=== PATIENT | female | born 1970 | race Hispanic/Latino ===

== ENCOUNTER 2016-03-14 06:48 | Emergency (ER) | payer OTHER ==
[2016-03-14 07:43] LABS: Basophils % (Auto) 0.6 % (0.0-1.8); Eosinophils % (Auto) 4.2 % (0.0-4.3); Hematocrit 39.2 % (30.3-42.9); Hemoglobin 12.8 gm/dl (10.1-14.3); Mean Corpuscular HGB Conc 33 % (30-34); Mean Corpuscular Hemoglobin 29 pg (28-32); Mean Corpuscular Volume 88 fl (79-97); Platelet Count 222 K/mm3 (140-440); Red Blood Count 4.48 M/mm3 (3.65-5.03); Red Cell Distribution Width 14.1 % (13.2-15.2); White Blood Count 9.9 K/mm3 (4.5-11.0)
[2016-03-14 07:49] LABS: Anion Gap 19 mmol/L; Blood Urea Nitrogen 9 mg/dL (7-17); Calcium 8.7 mg/dL (8.4-10.2); Carbon Dioxide 25 mmol/L (22-30); Chloride 103.3 mmol/L (98-107); Glucose 115 mg/dL (65-100); Potassium 4.6 mmol/L (3.6-5.0); Sodium 143 mmol/L (137-145)
--- NOTE | 2016-03-14 10:33 | Emergency Department Report ---
ED General Adult HPI - General Chief complaint: Extremity Problem,Nontraumatic Stated complaint: LEG NUMBNESS Time Seen by Provider: 03/14/16 10:19 Source: patient Mode of arrival: Wheelchair Limitations: No Limitations - History of Present Illness Initial comments: Patient complains of severe lower back pain. She states that she has been unable to urinate since 8 PM last night. She also states he's been unable to walk. She complains of some vague numbness. Her pain is not radiating. He states that she has never had a CT or an MRI of her lower back. She does admit to having chronic back pain. However she states that she has not seen a physician for evaluation of back pain for "2 years". I did review the patient's prior imaging studies. She indeed has had a CT of her lower back here in December 2015 when she was seen for lower back pain. There was no evidence of acute disc herniation evident on those studies. I asked her about this historical discrepancy. She told me that she had a CT and [facility]. When I asked her specifically about having a CT here, she stated "oh, I did have a CT before here a long time ago". I informed her that the CT was approximately 3 months ago and she said, "I forgot that". -: days(s) (worse for the past few days), year(s) Location: back (lower lumbar) Radiation: non-radiation Quality: aching Consistency: constant Improves with: none Worsens with: movement Associated Symptoms: denies other symptoms - Related Data Home Medications Medication Instructions Recorded Confirmed Last Taken No Known Home Medications [No 10/23/15 10/23/15 Unknown Reported Home Medications] Allergies Allergy/AdvReac Type Severity Reaction Status Date / Time bee venom (honey bee) Allergy Unknown Verified 03/14/16 06:59 cinnamon Allergy Unknown Verified 03/14/16 06:58 coconut oil Allergy Unknown Verified 03/14/16 06:59 ED Review of Systems ROS: Stated complaint: LEG NUMBNESS Other details as noted in HPI Constitutional: denies: chills, fever Eyes: denies: eye pain, eye discharge, vision change ENT: denies: ear pain, throat pain Respiratory: denies: cough, shortness of breath, wheezing Cardiovascular: denies: chest pain, palpitations Endocrine: no symptoms reported Gastrointestinal: denies: abdominal pain, nausea, diarrhea Genitourinary: other (urinary retention). denies: discharge Musculoskeletal: back pain. denies: joint swelling, arthralgia Skin: denies: rash, lesions Neurological: weakness (states unable to walk). denies: headache, paresthesias Psychiatric: denies: anxiety, depression Hematological/Lymphatic: denies: easy bleeding, easy bruising ED Past Medical Hx - Past Medical History Previous Medical History?: Yes Additional medical history: neuropathy. MRSA - Surgical History Past Surgical History?: Yes Additional Surgical History: 2 c-sections. umbilical hernia. pins to left hand. tonsilectomy - Social History Smoking Status: Current Every Day Smoker - Medications Home Medications: Home Medications Medication Instructions Recorded Confirmed Last Taken Type No Known Home Medications [No 10/23/15 10/23/15 Unknown History Reported Home Medications] ED Physical Exam - General Limitations: No Limitations, Physical Limitation General appearance: alert, in no apparent distress, other (morbidly obese) - Head Head exam: Present: atraumatic, normocephalic - Eye Eye exam: Present: normal appearance - ENT ENT exam: Present: mucous membranes moist - Neck Neck exam: Present: normal inspection - Respiratory Respiratory exam: Present: normal lung sounds bilaterally. Absent: respiratory distress - Cardiovascular Cardiovascular Exam: Present: regular rate, normal rhythm. Absent: systolic murmur, diastolic murmur, rubs, gallop - GI/Abdominal GI/Abdominal exam: Present: soft, normal bowel sounds, other (Limited secondary to patient's size). Absent: distended, tenderness, guarding, rebound, organomegaly, mass - Extremities Exam Extremities exam: Present: normal inspection - Back Exam Back exam: Present: normal inspection - Neurological Exam Neurological exam: Present: alert, oriented X3, CN II-XII intact, motor sensory deficit (patient was found to have poor plantar flexion of the left foot. She had ample dorsiflexion flexion bilaterally and extension flexion about the knee. She did not localize fine touch testing on examination of her left foot.) - Psychiatric Psychiatric exam: Present: normal mood, flat affect - Skin Skin exam: Present: warm, dry, intact, normal color. Absent: rash ED Course Vital Signs 03/14/16 03/14/16 06:59 13:02 Temperature 97.5 F L 98.4 F Pulse Rate 83 70 Respiratory 20 18 Rate Blood Pressure 159/87 Blood Pressure 111/56 [Left] O2 Sat by Pulse 98 98 Oximetry - Reevaluation(s) Reevaluation #1: I attempted to obtain an MRI at our facility and was unsuccessful. I spoke to the neurosurgeon at [place] who told me that he would accept the patient but medicine would have to it admit. I spoke with medicine and they stated that they were unable to accept the patient. I spoke to , neurosurgeon at [facility]. Ultimately he accepted the patient for an ER to ER transfer for evaluation. He did request that we repeat the patient's CT exam so I have done this. 03/14/16 16:09 03/14/16 16:29 I did in addition speak to the orthopedist pharmacy operations manager. He did agree that the patient needed to be transferred because we do not have the capacity to work her up properly. ED Medical Decision Making - Lab Data Result diagrams: 03/14/16 07:13 03/14/16 07:13 Laboratory Results - last 24 hr 03/14/16 03/14/16 07:13 07:13 WBC 9.9 RBC 4.48 Hgb 12.8 Hct 39.2 MCV 88 MCH 29 MCHC 33 RDW 14.1 Plt Count 222 Lymph % (Auto) 23.9 Porter % (Auto) 5.7 Eos % (Auto) 4.2 Baso % (Auto) 0.6 Lymph # 2.4 Porter # 0.6 Eos # 0.4 Baso # 0.1 Seg Neutrophils % 65.6 Seg Neutrophils # 6.5 Sodium 143 Potassium 4.6 Chloride 103.3 Carbon Dioxide 25 Anion Gap 19 BUN 9 Creatinine 0.5 L Estimated GFR > 60 BUN/Creatinine Ratio 18.00 Glucose 115 H Calcium 8.7 Laboratory Results - last 24 hr 03/14/16 03/14/16 03/14/16 07:13 07:13 09:45 WBC 9.9 RBC 4.48 Hgb 12.8 Hct 39.2 MCV 88 MCH 29 MCHC 33 RDW 14.1 Plt Count 222 Lymph % (Auto) 23.9 Porter % (Auto) 5.7 Eos % (Auto) 4.2 Baso % (Auto) 0.6 Lymph # 2.4 Porter # 0.6 Eos # 0.4 Baso # 0.1 Seg Neutrophils % 65.6 Seg Neutrophils # 6.5 Sodium 143 Potassium 4.6 Chloride 103.3 Carbon Dioxide 25 Anion Gap 19 BUN 9 Creatinine 0.5 L Estimated GFR > 60 BUN/Creatinine Ratio 18.00 Glucose 115 H Calcium 8.7 Urine Color Yellow Urine Turbidity Clear Urine pH 6.0 Ur Specific [place] 1.016 Urine Protein <15 mg/dl Urine Glucose (UA) Neg Urine Ketones Neg Urine Blood Neg Urine Nitrite Neg Urine Bilirubin Neg Urine Urobilinogen < 2.0 Ur Leukocyte Esterase Neg Urine WBC (Auto) < 1.0 Urine RBC (Auto) 1.0 U Epithel Cells (Auto) 1.0 Urine Mucus Few Urine Opiates Screen Urine Methadone Screen Ur Barbiturates Screen Ur Phencyclidine Scrn Ur Amphetamines Screen U Benzodiazepines Scrn Urine Cocaine Screen U Marijuana (THC) Screen Drugs of Abuse Note 03/14/16 11:13 WBC RBC Hgb Hct MCV MCH MCHC RDW Plt Count Lymph % (Auto) Porter % (Auto) Eos % (Auto) Baso % (Auto) Lymph # Porter # Eos # Baso # Seg Neutrophils % Seg Neutrophils # Sodium Potassium Chloride Carbon Dioxide Anion Gap BUN Creatinine Estimated GFR BUN/Creatinine Ratio Glucose Calcium Urine Color Urine Turbidity Urine pH Ur Specific [place] Urine Protein Urine Glucose (UA) Urine Ketones Urine Blood Urine Nitrite Urine Bilirubin Urine Urobilinogen Ur Leukocyte Esterase Urine WBC (Auto) Urine RBC (Auto) U Epithel Cells (Auto) Urine Mucus Urine Opiates Screen Presumptive negative Urine Methadone Screen Presumptive negative Ur Barbiturates Screen Presumptive negative Ur Phencyclidine Scrn Presumptive negative Ur Amphetamines Screen Presumptive negative U Benzodiazepines Scrn Presumptive negative Urine Cocaine Screen Presumptive negative U Marijuana (THC) Screen Presumptive negative Drugs of Abuse Note Disclamer Critical care attestation.: If time is entered above; I have spent that time in minutes in the direct care of this critically ill patient, excluding procedure time. ED Disposition Clinical Impression: Weakness of left lower extremity, Urinary retention Lower back pain Qualifiers: Chronicity: acute Back pain laterality: unspecified Sciatica presence: unspecified whether sciatica present Qualified Code(s): M54.5 - Low back pain Disposition: DC/TX ANOTHER TYPE HEALTHCARE Is pt being admited?: No Does the pt Need Aspirin: No Condition: Stable Referrals: PRIMARY CARE, [Primary Care Provider] - 3-5 Days Time of Disposition: 16:13
[2016-03-14] MEDS ORDERED: ZOFRAN IV ONE (11:13)
[2016-03-14] MEDS ORDERED: MORPHINE IV ONE (11:13)
[2016-03-14 12:21] LABS: Urine Drugs of Abuse Note Disclamer
[2016-03-14 12:33] LABS: Bilirubin,Urine NEG (Negative); Blood,Urine NEG (Negative); Ketones,Urine NEG (Negative); Leukocyte Esterase,Urine NEG (Negative); Mucus,Urine FEW /HPF; Nitrite,Urine NEG (Negative); Protein,Urine <15 mg/dL mg/dL (Negative); Urobilinogen,Urine < 2.0 mg/dL (<2.0); WBC,Urine < 1.0 /HPF (0.0-6.0)
--- NOTE | 2016-03-14 17:32 | Cat Scan Report ---
FINAL REPORT PROCEDURE: CT LUMBAR SPINE WO CON TECHNIQUE: Computerized axial tomography of the lumbar spine was performed from T12 to the sacrum without contrast material. HISTORY: Lower back pain. Urinary retention. COMPARISON: CT scan of the lumbar spine dated 10/23/2015. FINDINGS: L1-2: No significant abnormality. L2-3: No significant abnormality. L3-4: Small posterior and uncovertebral osteophytes without significant foraminal narrowing. Mild disc space narrowing. Slight disc bulge and ligamentum flavum thickening with mild canal stenosis. L4-5: Similar to above level. Mild vacuum disc change. Mild foraminal narrowing bilaterally. L5-S1: Mild facet arthropathy. Small posterior and uncovertebral osteophytes. Mild foraminal narrowing bilaterally, may be more moderate on the right. Moderate disc space narrowing. Mild to moderate vacuum discs change. Mild diffuse disc bulge. Other: Small multilevel osteophytes. Slight dextroscoliosis. Normal alignment. Stable 5 millimeter sclerotic lesion of left L4 vertebral body, likely bone island. Mild degenerative change of the bilateral sacroiliac joints. Mild atherosclerosis. Mild bladder distention. Diverticulosis. IMPRESSION: Mild to moderate multilevel degenerative changes of the lumbar spine, most evident at L4-5 and L5-S1. Evaluation of soft tissues limited due to patient body habitus. Consider further evaluation including MRI if there is continued clinical concern and if patient has no contraindication to MRI. Mild bladder distention. Diverticulosis.
[2016-03-14] MEDS ORDERED: TORADOL IV ONE (18:12)
[2016-03-15] MEDS ORDERED: NACL 0.9% 1000 ML 1,000 ML IV ONE (00:56)
[2016-03-15] MEDS ORDERED: PERCOCET 5/325 PO ONE (00:56)
--- NOTE | 2016-03-15 00:58 | Emergency Department Report ---
Blank Doc - Documentation Documentation: pt awaiting transport and requesting pain med. SBP in the 90's upon nurse recheck. Last Morphine dose this am ordered about 11am. 1 L of NS and percocet ordered for pain
[2016-03-15 01:23] VITALS: BP 101/72
--- NOTE | 2016-03-15 01:49 | Admit Criteria Form ---
Admission Criteria Documentation: BACK PAIN Clinical Indications for Admission to Inpatient Care (Place 'X' for any and all applicable criteria): Admission is indicated for ANY ONE of the following (1)(2)(3)(4)(5)(6): [X ]I. Inpatient admission required rather than observation care (Also use Back Pain: Observation Care as appropriate) because of ANY ONE of the following [ ]a) Severe pain requiring acute inpatient management [ ]b) Immediate inpatient surgery [ X]c) Other condition, treatment or monitoring requiring inpatient admission [ ]II. Spine fracture with significant damage or threat of damage to vertebral column or spinal cord [ ]III. Progressive or severe neurologic deficit [ ]IV. Suspected spinal infection (e.g., epidural abscess, vertebral osteomyelitis)(10) [ ]V. Suspected cause requires inpatient treatment (eg, aortic dissection) [ ]. Cauda equina syndrome as indicated by ANY ONE of the following (9): [ ]a) Bowel dysfunction [ ]b) Bladder dysfunction [ ]c) Saddle anesthesia [ ]d) Neurologic abnormality suggesting cauda equina impingement Extended stay beyond goal length of stay may be needed for (3)(25): [ ]a) Spinal cord compression from stenosis, disk, or tumor (8)(9) [ ]b) Traumatic or pathologic vertebral fracture (33) [ ]c) Vertebral infection(10) [ ]d) Severe pain that is difficult to control [ ]e) Older patients(65 years or older) The original [facility] content created by [employer] has been revised. The portions of the content which have been revised are identified through the use of italic text or in bold, and [facility] has neither reviewed nor approved the modified material. All other unmodified content is copyright [employer]. Please see references footnoted in the original [facility] edition 2016 Admission Criteria Met: Yes
== END 2016-03-15 02:05 | disposition other institution (70) ==
LOC: ED 06:48
DX: N39.0 Urinary tract infection, site not specified (principal); M62.81 Muscle weakness (generalized); M54.5 Low back pain; F17.200 Nicotine dependence, unspecified, uncomplicated
CPT/HCPCS: 36415; 51701; 72131; 80048; 80307; 81001; 85025; 96361; 96374; 96375; 99285; J1885; J2270; J2405; J7030